=== PATIENT | female | born 1995 | race Caucasian/White ===

== ENCOUNTER → 2016-06-21 | Outpatient (CLI) | payer MEDICAID ==
[~2016-06-21] MED LIST: DOCU-143 PO; DOCU100C37 PO; HYDR-3812 PO; IBUP-1780 PO; NORE0.3518 PO; OXYC-465 PO; PREN1TAB19 PO
--- NOTE | 2016-06-21 10:09 | Diagnostic Imaging Report ---
PROCEDURE: US Gallbladder. TECHNIQUE: Multiple real-time grayscale images were obtained over the right upper quadrant in various projections. INDICATION: Right upper quadrant pain and tenderness. FINDINGS: The pancreas is completely obscured. The liver demonstrate no focal lesion. There is a hepatopetal flow in the portal vein demonstrated. The gallbladder demonstrate stones one measuring 1.6 CM largest in the neck and one measuring 1.7 CM largest in the fundus. There is gallbladder thickening up to 6 mm. The CBD is obscured. The right kidney is 10.3 CM in length with no hydronephrosis or focal lesion. There is no fluid collection in the upright abdomen and no pericholecystic fluid seen. Sonographic El sign is reportedly positive. IMPRESSION: Findings of gallstone with associated acute or chronic cholecystitis. Correlate clinically. Report was faxed and called to Michaela/KAREN c/o Deana Claudio APRN by yaneth at 10:10 am. Dictated by: Dictated on workstation # [id number]
== END ==
LOC: RAD 09:12
DX: K80.20 Calculus of gallbladder without cholecystitis without obstruction (principal)
CPT/HCPCS: 76705

== ENCOUNTER 2016-08-02 10:12 | Outpatient (CLI) | payer MEDICAID ==
[~2016-08-02] VITALS: Ht 170.2 cm; Wt 124.9 kg
[~2016-08-02 10:12] MED LIST changes: -DOCU-143 PO; -HYDR-3812 PO; -NORE0.3518 PO
--- OUTSIDE RECORDS SUMMARY | 2016-08-02 10:17 | XMS REPORT | Continuity of Care Document ---
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.0 MILD HYPEREMESIS GRAVIDARUM 10/27/2015 OSMEL JASMINE MD, Ot Z31.82 ENCOUNTER FOR RH INCOMPATIBILITY STATUS 10/28/2015 OSMEL JASMINE MD, Ot Z31.82 ENCOUNTER FOR RH INCOMPATIBILITY STATUS 01/24/2016 OSMEL JASMINE MD, Ot O41.03X0 OLIGOHYDRAMNIOS, THIRD TRIMESTER , NOT AP 01/24/2016 OSMEL JASMINE MD, Ot O48.1 PROLONGED 01/24/2016 OSMEL JASMINE MD, Ot O70.0 FIRST DEGREE PERINEAL LACERATION DURING 01/24/2016 OSMEL JASMINE MD Ot Z23 ENCOUNTER FOR IMMUNIZATION 01/24/2016 OSMEL JASMINE MD, Ot Z37.0 SINGLE LIVE 01/24/2016 OSMEL JASMINE MD, Ot Z3A.49 GREATER THAN 42 WEEKS GESTATION OF PREGN 06/21/2016 OTHER, UNLISTED Ot K80.20 CALCULUS OF GALLBLADDER W/O CHOLECYSTITI 06/21/2016 OTHER, UNLISTED Ot K80.20 CALCULUS OF GALLBLADDER W/O CHOLECYSTITI 06/22/2016 OTHER, UNLISTED Ot K80.20 CALCULUS OF GALLBLADDER W/O CHOLECYSTITI 07/10/2016 OTHER, UNLISTED Ot K80.20 CALCULUS OF GALLBLADDER W/O CHOLECYSTITI 07/17/2016 OTHER, UNLISTED Ot K80.20 CALCULUS OF GALLBLADDER W/O CHOLECYSTITI Procedures Code Description Performed By Performed On [id number] REPAIR PERINEUM SKIN, EXTERNAL APPROACH 01/22/2016 [id number] DIVISION OF FEMALE PERINEUM, EXTERNAL AP 01/22/2016 01V3YTL DELIVERY OF PRODUCTS OF CONCEPTION, EXTE 01/22/2016 Results Test Result Range Complete blood count (CBC) with automated white blood cell (WBC) differential - 01/22/16 00:15 Blood leukocytes automated count (number/volume) 15.6 10*3/ uL 4.3-11.0 Blood erythrocytes automated count (number/volume) 4.54 10*6 /uL 4.35-5.85 Venous blood hemoglobin measurement (mass/volume) 12.3 g/dL 11.5-16.0 Blood hematocrit (volume fraction) 37 % 35-52 Automated erythrocyte mean corpuscular volume 81 [foz_us] 80-99 Automated erythrocyte mean corpuscular hemoglobin (mass per erythrocyte) 27 pg 25-34 Automated erythrocyte mean corpuscular hemoglobin concentration measurement ( mass/volume) 33 g/dL 32-36 Automated erythrocyte distribution width ratio 14.2 % 10.0-14.5 Automated blood platelet count (count/volume) 265 10*3/uL 130-400 Automated blood platelet mean volume measurement 10.8 [foz_ us] 7.4-10.4 Automated blood neutrophils/100 leukocytes 82 % 42-75 Automated blood lymphocytes/100 leukocytes 12 % 12-44 Blood monocytes/100 leukocytes 5 % 0-12 Automated blood eosinophils/100 leukocytes 0 % 0-10 Automated blood basophils/100 leukocytes 0 % 0-10 Blood neutrophils automated count (number/volume) 12.8 10*3 1.8-7.8 Blood lymphocytes automated count (number/volume) 1.9 10*3 1.0-4.0 Blood monocytes automated count (number/volume) 0.8 10*3 0.0-1.0 Automated eosinophil count 0.1 10*3/uL 0.0-0.3 Automated blood basophil count (count/volume) 0.0 10*3/uL 0.0-0.1 Blood type T Indirect antibody screen panel - 01/22/16 00:15 ABO+Rh group AN NRG Transfusion band number [id number] NRG Blood group antibody screen NEGATIVE NRG Blood manual differential performed detection - 01/22/16 00:15 Blood monocytes/100 leukocytes 2 % NRG Manual blood segmented neutrophils/100 leukocytes 89 % NRG Blood band neutrophils/100 leukocytes 0 % NRG Manual blood lymphocytes/100 leukocytes 7 % NRG Manual eosinophils/100 leukocytes in nose 0 % NRG Manual blood basophils/100 leukocytes 0 % NRG Blood lymphocytes variant/100 leukocytes 2 % NRG Blood erythrocyte morphology finding identification NORMAL NRG RH IMMUNE GLOBULIN [facility] - 01/23/16 05:33 RH IMMUNE GLOBULIN [facility] PRSMD TRFSD 03/02 1102 NRG cell screen - 01/23/16 05:33 SCREEN LOT NUMBER [id number] NRG Transfusion band number [id number] NRG [id number] 1 300ug NRG Erythrocytes./1000 erythrocytes 02/03/16 NRG cell screen 03/08/18 NRG Lot number [id number] NRG Encounters ACCT No. Visit Date/Time Discharge Status Pt. Type Provider Facility Loc./Unit Complaint [id number] 01/22/2016 00:00:00 2015 13:00:00 DIS Inpatient OSMEL JASMINE MD [facility] LDRP LABOR [id number] 10/27/2015 17:29:00 2015 18:40:00 DIS Outpatient OSMEL JASMINE MD [facility] WSo RH NEGATIVE [id number] 06/23/2015 09:24:00 2015 13:04:00 DIS Outpatient OSMEL JASMINE MD [facility] IVTHERAPY NAUSEA, VOMITING [id number] 06/21/2016 09:12:00 ACT Outpatient OTHER, UNLISTED [facility] RAD ABDOMINAL PAIN
[2016-08-02] MEDS ORDERED: NORE0.3518 PO (10:22)
[2016-08-02 10:27] VITALS: BP 127/78
[2016-08-02 10:54] LABS: BASOPHILS % (AUTO) 0 % (0-10); EOSINOPHILS % (AUTO) 1 % (0-10); LYMPHOCYTES % (AUTO) 25 % (12-44); MEAN CORPUSCULAR HEMOGLOBIN 26 PG (25-34); MEAN CORPUSCULAR HGB CONC 33 G/DL (32-36); MEAN CORPUSCULAR VOLUME 81 FL (80-99); MEAN PLATELET VOLUME 9.9 FL (7.4-10.4); MONOCYTES # (AUTO) 0.4 X 10^3 (0.0-1.0); MONOCYTES % (AUTO) 5 % (0-12); NEUTROPHILS # (AUTO) 5.5 X 10^3 (1.8-7.8); NEUTROPHILS % (AUTO) 69 % (42-75); PLATELET COUNT 346 10^3/uL (130-400); RED BLOOD COUNT 4.87 10^6/uL (4.35-5.85); WHITE BLOOD COUNT 7.9 10^3/uL (4.3-11.0)
== END 2016-08-02 12:31 | disposition home or self-care (01) ==
LOC: PREOP 10:12
PROVIDERS: ATTEND Surgery
DX: Z01.812 Encounter for preprocedural laboratory examination (principal); Z11.2 Encounter for screening for other bacterial diseases; K80.20 Calculus of gallbladder without cholecystitis without obstruction
CPT/HCPCS: 36415; 85025; 87081

== ENCOUNTER 2016-08-09 08:15 | Day surgery (SDC) | payer MEDICAID ==
[~2016-08-09] VITALS: Ht 170.2 cm; Wt 124.9 kg
[~2016-08-09 08:15] MED LIST changes: +NORE0.3518 PO
--- OUTSIDE RECORDS SUMMARY | 2016-08-09 08:19 | XMS REPORT | Continuity of Care Document ---
Author Author [facility] Organization [facility] Address Unknown Phone Unavailable Allergies Active Description Code Type Severity Reaction Onset Reported/Identified Relationship to Patient Clinical Status Yes No Known Drug Allergies [id number] Drug Allergy Unknown N/ A 06/23/2015 Yes egg [id number] Drug Allergy Moderate GI UPSET 08/02/2016 Yes Latex, Natural Rubber [id number] Drug Allergy Moderate RASH 08/02/2016 Medications Problems Date Dx Coded Attending Type [...] DEGREE PERINEAL LACERATION DURING 01/24/2016 OSMEL JASMINE MD, Ot Z23 ENCOUNTER FOR IMMUNIZATION 01/24/2016 OSMEL [...] Ot K80.20 CALCULUS OF GALLBLADDER W/O CHOLECYSTITI 08/03/2016 MATEO MENJIVAR DO Ot K80.20 CALCULUS OF GALLBLADDER W/O CHOLECYSTITI 08/03/2016 MATEO MENJIVAR DO Ot Z01.812 ENCOUNTER FOR PREPROCEDURAL LABORATORY E 08/03/2016 MATEO MENJIVAR DO Ot Z11.2 ENCOUNTER FOR SCREENING FOR OTHER BACTER Procedures Code Description Performed By Performed On [id number] REPAIR PERINEUM SKIN, EXTERNAL APPROACH 01/22/2016 [id number] DIVISION OF FEMALE PERINEUM, EXTERNAL AP 01/22/2016 26O5LPC DELIVERY OF PRODUCTS OF CONCEPTION, EXTE 01/22/2016 [...] ABO+Rh group AN NRG Transfusion band number [id number] [facility] Blood group antibody screen NEGATIVE NRG Blood [...] finding identification NORMAL NRG [facility] - 01/23/16 05:33 RH IMMUNE GLOBULIN [facility] PRSMD TRFSD 03/02 1102 NRG cell screen - 01/23/16 05:33 SCREEN LOT NUMBER [id number] Transfusion band number [id number] [facility] [id number] 1 300ug NRG Erythrocytes./1000 erythrocytes 02/03/16 NRG cell screen 03/08/18 NRG Lot number [id number] NR Complete blood count (CBC) with automated white blood cell (WBC) differential - 08/02/16 10:30 Blood leukocytes automated count (number/volume) 7.9 10*3/ uL 4.3-11.0 Blood erythrocytes automated count (number/volume) 4.87 10*6 /uL 4.35-5.85 Venous blood hemoglobin measurement (mass/volume) 12.8 g/dL 11.5-16.0 Blood hematocrit (volume fraction) 39 % 35-52 Automated erythrocyte mean corpuscular volume 81 [foz_us] 80-99 Automated erythrocyte mean corpuscular hemoglobin (mass per erythrocyte) 26 pg 25-34 Automated erythrocyte mean corpuscular hemoglobin concentration measurement ( mass/volume) 33 g/dL 32-36 Automated erythrocyte distribution width ratio 14.0 % 10.0-14.5 Automated blood platelet count (count/volume) 346 10*3/uL 130-400 Automated blood platelet mean volume measurement 9.9 [foz_us ] 7.4-10.4 Automated blood neutrophils/100 leukocytes 69 % 42-75 Automated blood lymphocytes/100 leukocytes 25 % 12-44 Blood monocytes/100 leukocytes 5 % 0-12 Automated blood eosinophils/100 leukocytes 1 % 0-10 Automated blood basophils/100 leukocytes 0 % 0-10 Blood neutrophils automated count (number/volume) 5.5 10*3 1.8-7.8 Blood lymphocytes automated count (number/volume) 2.0 10*3 1.0-4.0 Blood monocytes automated count (number/volume) 0.4 10*3 0.0-1.0 Automated eosinophil count 0.0 10*3/uL 0.0-0.3 Automated blood basophil count (count/volume) 0.0 10*3/uL 0.0-0.1 Methicillin resistant Staphylococcus aureus (MRSA) screening culture - 10:30 Methicillin resistant Staphylococcus aureus (MRSA) screening culture NEG NRG Encounters ACCT No. Visit Date/Time Discharge Status Pt. Type Provider Facility Loc./Unit Complaint [id number] 08/02/2016 10:12:00 2016 12:31:00 DIS Outpatient MATEO MENJIVAR DO [facility] PREOP SYMPTOMATIC [id number] 01/22/2016 00:00:00 2015 13:00:00 DIS Inpatient OSMEL JASMINE MD [facility] LDRP LABOR [id number] 10/27/2015 17:29:00 2015 18:40:00 DIS Outpatient OSMEL JASMINE MD [facility] WSo RH NEGATIVE [id number] 06/23/2015 09:24:00 2015 13:04:00 DIS Outpatient OSMEL JASMINE MD [facility] IVTHERAPY NAUSEA, VOMITING [id number] 08/09/2016 10:15:00 PEN Preadmit MATEO MENJIVAR DO [facility] SDC SYMPTOMATIC [id number] 06/21/2016 09:12:00 ACT Outpatient OTHER, UNLISTED [facility] RAD ABDOMINAL PAIN
--- OUTSIDE RECORDS SUMMARY | 2016-08-09 08:19 | XMS REPORT | Continuity of Care Document ---
Author Author [facility] Organization [facility] Address Unknown Phone Unavailable Allergies Active Description Code Type Severity Reaction Onset Reported/Identified Relationship to Patient Clinical Status Yes No Known Drug Allergies [id number] Drug Allergy Unknown N/ A 06/23/2015 Yes egg [id number] Drug Allergy Moderate GI UPSET 08/02/2016 Yes Latex, Natural Rubber [id number] Drug Allergy Moderate RASH 08/02/2016 Medications Problems [...] Procedures Code Description Performed By Performed On [id number] REPAIR PERINEUM SKIN, EXTERNAL APPROACH 01/22/2016 [id number] DIVISION OF FEMALE PERINEUM, EXTERNAL AP 01/22/2016 [id number] DELIVERY OF PRODUCTS OF CONCEPTION, EXTE 01/22/2016 [...] ABO+Rh group AN NRG Transfusion band number [id number] [facility] Blood group antibody screen NEGATIVE [...] finding identification NORMAL NRG RH IMMUNE GLOBULIN [facility] - 01/23/16 05:33 RH IMMUNE GLOBULIN [facility] PRSMD TRFSD 03/02 1102 NRG cell screen - 01/23/16 05:33 SCREEN LOT NUMBER [id number] NR Transfusion band number [id number] [facility] [id number] 1 300ug NRG Erythrocytes./1000 erythrocytes 02/03/16 NRG cell screen 03/08/18 NRG Lot number [id number] NR Complete blood count (CBC) with automated [...] Status Pt. Type Provider Facility Loc./Unit Complaint [id number] 08/02/2016 10:12:00 2016 12:31:00 DIS Outpatient MATEO MENJIVAR DO [facility] PREOP SYMPTOMATIC [id number] 01/22/2016 00:00:00 2015 13:00:00 DIS Inpatient OSMEL JASMINE MD [facility] LDRP LABOR [id number] 10/27/2015 17:29:00 2015 18:40:00 DIS Outpatient OSMEL JASMINE MD [facility] WSo RH NEGATIVE [id number] 06/23/2015 09:24:00 2015 13:04:00 DIS Outpatient OSMEL JASMINE MD [facility] IVTHERAPY NAUSEA, VOMITING [id number] 08/09/2016 10:15:00 PEN Preadmit MATEO MENJIVAR DO [facility] SDC SYMPTOMATIC [id number] 06/21/2016 09:12:00 ACT Outpatient OTHER, UNLISTED [facility] RAD ABDOMINAL PAIN
[2016-08-09] MEDS ORDERED: ceFAZolin 2 GM/50 ML NS 50 ML IV ONE (08:37)
[2016-08-09] MEDS ORDERED: ceFAZolin 2 GM/NS 50 ML IV ONE (08:45)
[2016-08-09] MEDS ORDERED: CATHETER FLUSH 10 ML SYR IV PRN (08:45)
[2016-08-09] MEDS ORDERED: MIDAZOLAM 2 MG/2 ML (VERSED) VIAL IV ONE (09:00)
[2016-08-09] MEDS: LACTATED RINGERS 1,000 ML IV PRN ×2 (09:02→11:30)
[2016-08-09 09:21] VITALS: BP 140/88
[2016-08-09] MEDS ORDERED: FAMOTIDINE 20MG/2ML IV (PEPCID) ONE (09:32)
[2016-08-09] MEDS ORDERED: BUPIVACAINE 0.5% 30 ML (SENSORCAINE) VIAL ONE (09:36)
[2016-08-09] MEDS ORDERED: LIDOCAINE 1% INJ 20 ML (XYLOCAINE) VIAL ONE (09:36)
[2016-08-09] MEDS ORDERED: ONDANSETRON 4 MG/2 ML (SDV) Z0FRAN ONE ×3 (09:37→12:46)
[2016-08-09] MEDS ORDERED: LIDOCAINE PF 2% 10 ML (XYLOCAINE) AMP ONE (09:37)
[2016-08-09] MEDS ORDERED: DEXAMETHASONE PF 10 MG/ML (DECADRON) VIAL ONE (09:37)
[2016-08-09] MEDS ORDERED: ROCURONIUM 50 MG/5 ML (ZEMURON) VIAL IV ONE (09:37)
[2016-08-09] MEDS ORDERED: MIDAZOLAM 2 MG/2 ML (VERSED) VIAL ONE (09:37)
[2016-08-09] MEDS ORDERED: proPOfol 200 MG/20 ML (DIPRIVAN) VIAL IV ONE (09:37)
[2016-08-09] MEDS ORDERED: fentaNYL INJECTION 100 MCG/2 ML AMP ONE ×2 (09:38→12:15)
--- NOTE | 2016-08-09 10:08 | Progress Note-Pre Operative ---
Pre-Operative Progress Note H&P Reviewed The H&P was reviewed, patient examined and no changes noted. Date H&P Reviewed: Aug 09, 2016 Time H&P Reviewed: 10:08 Pre-Operative Diagnosis: symptomatic cholelithiasis MATEO MENJIVAR DO Aug 09, 2016 10:08 am
--- NOTE | 2016-08-09 11:22 | Progress Note-Post Operative ---
Post-Operative Progess Note Customer Service Advocate Dr. Mckeon Pre-Operative Diagnosis symptomatic cholelithiasis Post-Operative Diagnosis same Post-Op Procedure Note Date of Procedure: Aug 09, 2016 Name of Procedure: lap vincenzo Procedure Note/Findings see note Anesthesia Type general Estimated blood loss (mL): minimal Specimen(s) collected gallbladder MATEO MENJIVAR DO Aug 09, 2016 11:22 am
[2016-08-09] MEDS ORDERED: SEVOFLURANE (ULTANE) 15 ML INHAL SOLN ONE (11:23)
[2016-08-09] MEDS ORDERED: LACTATED RINGERS 2,000 ML IV ONE (11:23)
[2016-08-09] MEDS ORDERED: DOCU-143 PO (11:25)
[2016-08-09] MEDS ORDERED: HYDR-3812 PO (11:25)
--- NOTE | 2016-08-09 11:31 | Discharge Inst-Simple/Standard ---
Discharge Inst-Standard Discharge Medications New, Converted or Re-Newed RX: RX on Chart Patient Instructions/Follow Up Plan of Care/Instructions/FU: 2 weeks Nas Activity as Tolerated: No Discharge Diet: Regular Diet Other Inst to Patient Follow up Appt: Make appointment for 2 weeks. Instructions: No lifting greater than 10 pounds. No strenuous activity. May shower in 24 hours, no tub bath or soaking. Use incentive spirometer at home as directed. No Smoking Skin/Wound Care: May remove bandages in 24 hours. You need to leave the white strips over incision on they will fall off on their own. Symptoms to Report: Appetite Changes, Extremity Discoloration, Numbness/Tingling, Swelling Increased , Bleeding Excessive, Eyesight Changes, Pain Increased, Urine Color Change, Constipation(Persistent), Fever over 101 degree F, Pain/Pressure in chest, Urinating Difficulty, Cough Up/Vomit Blood, Heart Beat Irreg/Pounding, Pain/ Pressure in jaw, Vaginal Bleeding Increase, Cramps in feet or legs, Lightheadedness, Pain/Pressure in shoulder, Diarrhea(Persistent), Memory Changes Suddenly, Questions/Concerns, Weight gain consecutive days, Dizziness/ Fainting, Nausea/Vomiting, Shortness of Breath, Weight gain over 2 pounds. If eyes or skin turn yellow notify physician. If questions or concerns contact your physician Or seek help at emergency department. MATEO MENJIVAR DO Aug 09, 2016 11:31 am
[2016-08-09] MEDS ORDERED: morphine INJ 10 MG/ML 1ML (SYR OR VIAL) ONE (11:40)
[2016-08-09] MEDS ORDERED: KETOROLAC 30 MG/ML VIAL ONE (11:40)
[2016-08-09] MEDS ORDERED: KETOROLAC 30 MG/ML VIAL IV PRN (11:45)
[2016-08-09] MEDS ORDERED: fentaNYL INJECTION 100 MCG/2 ML AMP IV PRN (11:45)
[2016-08-09] MEDS ORDERED: ONDANSETRON 4 MG/2 ML (SDV) Z0FRAN IV PRN (11:45)
[2016-08-09] MEDS ORDERED: PROMETHAZINE INJ 25 MG/ML (PHENERGAN) AMP IV PRN (11:45)
[2016-08-09] MEDS: morphine INJ 10 MG/ML 1ML (SYR OR VIAL) IV PRN ×2 (11:54→12:03)
[2016-08-09 12:35] VITALS: BP 122/69
[2016-08-09 13:05] VITALS: BP 125/72
[2016-08-09 13:35] VITALS: BP 127/63
--- NOTE | 2016-08-09 15:26 | Diagnostic Imaging Report ---
Indication: Right upper quadrant pain. Discussion: Fluoroscopic support was provided during intraoperative cholangiogram. Please see the operative report for full detail. There is progression of contrast into the duodenum. Fluoroscopy time: 8 seconds. Contrast: 5 mL Omnipaque 300. Impression: Intraoperative cholangiogram. Dictated by: Dictated on workstation # [id number]
--- NOTE | 2016-08-10 10:41 | OPERATIVE REPORT ---
PROCEDURE PHYSICIAN: MATEO MENJIVAR DATE OF PROCEDURE: 08/09/2016 PREOPERATIVE DIAGNOSIS: Symptomatic cholelithiasis. POSTOPERATIVE DIAGNOSIS: Symptomatic cholelithiasis. PROCEDURE: Laparoscopic cholecystectomy with intraoperative cholangiogram. SURGEON: Nas SPOUT POSITIONER: Dr. Mckeon, who assisted in retraction, dissection, and closure. ANESTHESIA: General. ESTIMATED BLOOD LOSS: Minimal. COMPLICATIONS: None. INDICATIONS: The patient is a 21-year-old female who presented to with right upper quadrant abdominal pain for approximately 6 months. She had a gallbladder ultrasound demonstrating gallstones which measured 1.7-1.6 cm and a gallbladder wall 6 mm. She was explained risk and benefits of having laparoscopic cholecystectomy with intraoperative angiogram, possible open performed. She understands the risks, benefits, and wished to proceed with procedure. Consent was signed on the chart. PROCEDURE: The patient was taken operative suite. She was prepped and draped in the sterile fashion. A surgical pause was performed. Local anesthetic infiltrated were ports placed and incisions made. A 12 millimeter incision was made just above the umbilicus. Cautery was used to dissect down to the fascia, score the fascia. This was then grasped and elevated. The abdomen was then entered. An 0 Vicryl was placed in a plkdxj-wl-efapa fashion for closure at a later time. A balloon port was then inserted and balloon was inflated and pneumoperitoneum was then achieved. Under direct visualization of the laparoscope, a 5 mm trocar was placed in the subxiphoid region and two 5-mm trocars were placed in the right upper quadrant. The gallbladder was grasped and elevated. The cystic duct and cystic artery were then dissected out. Clips were placed on the distal portion of the cystic duct and on the proximal and distal portion of the cystic artery. The cystic duct was then partially transected. An arrow catheter was inserted into the duct and balloon was inflated on the arrow catheter. The cholangiogram was then performed. There were no filling defects. Contrast made its way into the duodenum without difficulty. The arrow catheter was then removed. Clips were placed on proximal portion and this was then completely transected along with the cystic artery. The hook cautery was used to dissect the gallbladder from the gallbladder fossa achieving hemostasis and removing gallbladder. The gallbladder was then placed in an Endobag and removed through the 12 mm trocar site. The abdomen was then irrigated and liver bed was reinspected, hemostasis had been achieved. The 12 mm fascial defect was then closed using 0 Vicryl suture in a mwcjfj-qk-poqwq that was already placed. The abdomen was then desufflated. The trocars were removed. The subcutaneous tissues were then reapproximated using 4-0 Vicryl in subcuticular fashion. Mastisol and Steri-Strips were then placed over the incision and sterile bandages were placed. The patient tolerated the procedure well without complications. She was taken to the recovery room in stable condition. Job ID: [id number] Dictated Date: 08/09/2016 11:35:49 Powerhouse Mechanic Helper Date: 08/10/2016 10:20:39 / tavia YEPEZ
== END 2016-08-09 14:22 | disposition home or self-care (01) ==
LOC: SDC 08:15
PROVIDERS: ATTEND Surgery
DX: K80.10 Calculus of gallbladder with chronic cholecystitis without obstruction (principal)
CPT/HCPCS: 84703; 88304; 94664

== ENCOUNTER → 2019-02-02 | Outpatient (CLI) | payer MEDICAID, OTHER ==
[~2019-02-02] MED LIST changes: +ACHD5005 PO; +DOCU-143 PO
--- NOTE | 2019-02-02 18:06 | Diagnostic Imaging Report ---
PROCEDURE: US OB SINGLE FETUS <14 WKS. TECHNIQUE: Multiple real-time grayscale images were obtained over the gravid uterus in various projections. INDICATION: dating. FINDINGS: There is an intrauterine gestational sac containing a pole. [place]-rump length measurement is 16 mm, consistent with 8 weeks 0 days gestation. heart rate was recorded at 163 beats per minute. No perigestational sac hemorrhage is detected. Gestational sac shape is within normal limits. Ovaries are unremarkable. No adnexal mass or free fluid is seen. IMPRESSION: Single live IUP of 8 weeks 0 days gestational age. Estimated date of confinement sonographically is 09/14/2019. Dictated by: Dictated on workstation # [id number]
== END ==
LOC: RAD 13:22
PROVIDERS: ATTEND Family Medicine
DX: Z34.91 Encounter for supervision of normal pregnancy, unspecified, first trimester (principal); Z3A.08 8 weeks gestation of pregnancy
CPT/HCPCS: 76801

== ENCOUNTER → 2019-04-16 | Outpatient (CLI) | payer OTHER, MEDICAID ==
--- NOTE | 2019-04-16 15:11 | Diagnostic Imaging Report ---
INDICATION: survey. TECHNIQUE: Multiple real-time grayscale images were obtained over the gravid uterus. COMPARISON: 02/02/2019. FINDINGS: A single live intrauterine fetus is seen measuring 18 weeks 6 days in size by composite measurements, with sonographic EDC of 09/11/2019. Fetus is in breech presentation at this time. The amniotic fluid is qualitatively normal. Placenta is grade 1 with no evidence of previa. heart rate is 146 beats per minute. Cervical length is 3.6 cm. The maternal adnexa could not be visualized. survey showed normal-appearing kidneys and bladder. Normal-appearing stomach and intracranial ventricles are seen. Four-chamber heart view appears unremarkable. There is a three-vessel cord with normal-appearing cord insertion. The spine appears unremarkable. There is a possible nuchal cord, for which follow-up is suggested. Biometrical measurements are as follows: Biparietal 4.23 cm, age 18 weeks 6 days. Head circumference 15.81 cm, age 18 weeks 5 days. Abdominal circumference 13.06 cm, age 18 weeks 5 days. Femur length 2.88 cm, age 18 weeks 6 days. Sonographic estimate age: 18 weeks 6 days. Sonographic estimated date of delivery: 09/11/2019. Estimated Weight: 254 gm (+/- 37 gm). LMP percentile: 63%. heart rate: 146 beats per minute. number: 1 of 1. IMPRESSION: Single live intrauterine fetus measuring 18 weeks 6 days in size as described above with normal interval growth compared to the previous ultrasound. survey shows no detectable abnormalities except for possible nuchal cord, for which follow-up is suggested. The fetus is in breech presentation at this time. Dictated by: Dictated on workstation # [id number]
== END ==
LOC: RAD 13:15
PROVIDERS: ATTEND Family Medicine
DX: Z34.92 Encounter for supervision of normal pregnancy, unspecified, second trimester (principal); Z3A.18 18 weeks gestation of pregnancy
CPT/HCPCS: 76805

== ENCOUNTER → 2019-05-05 | Outpatient (CLI) | payer MEDICAID, OTHER ==
--- NOTE | 2019-05-05 15:06 | Diagnostic Imaging Report ---
INDICATION: Follow-up nuchal cord. TECHNIQUE: Multiple real-time grayscale images were obtained over the gravid uterus. COMPARISON: 04/16/2019. FINDINGS: There is a single live fetus in a breech presentation. heart rate was recorded at 142 BPM. Placenta is anterior. Amniotic fluid volume is 19.2 cm. Previously noted nuchal cord is not demonstrated on today's exam. Maternal adnexa is unremarkable. IMPRESSION: Unremarkable Limited obstetrical ultrasound. No nuchal cord is identified. Dictated by: Dictated on workstation # [id number]
== END ==
LOC: RAD 11:58
PROVIDERS: ATTEND Family Medicine
DX: O69.81X0 Labor and delivery complicated by cord around neck, without compression, not applicable or unspecified (principal); Z3A.00 Weeks of gestation of pregnancy not specified
CPT/HCPCS: 76816

== ENCOUNTER 2019-07-29 09:39 | Outpatient (CLI) | payer MEDICAID ==
--- NOTE | 2019-07-29 09:45 | NUR ---
Arrived to unit for RHogam injection. To room 314. oriented to room, call light and plan of care. ice water given.
[2019-07-29 09:55] VITALS: BP 114/73
[2019-07-29 10:32] VITALS: BP 115/73
--- NOTE | 2019-07-29 10:40 | NUR ---
pt ambulates self off unit to private vehicle with belongings in hand.
== END 2019-07-29 10:40 | disposition home or self-care (01) ==
LOC: WSo 09:39
PROVIDERS: ATTEND Family Medicine
DX: Z31.82 Encounter for Rh incompatibility status (principal)
CPT/HCPCS: 96372

== ENCOUNTER 2019-09-10 05:20 | Inpatient (IN) | payer OTHER, MEDICAID ==
[2019-09-10] VITALS (50 sets, daily range): BP systolic 107–175; BP diastolic 62–96
[~2019-09-10] VITALS: Ht 170.2 cm; Wt 122.6 kg
--- NOTE | 2019-09-10 06:00 | NUR ---
BRENDA JOSEPH presented to unit via ambulation from home, accompanied by s.o. for induction of labor. BRENDA JOSEPH weighed, gowned, voided, and to bed. EFHM and TOCO applied, VS taken. BRENDA JOSEPH oriented to bed controls, call light, TV, heat, and A/C controls.
[2019-09-10] MEDS ORDERED: MINERAL OIL CONCENTRATE 99.9% 15 ML UDC TOP PRN (06:15)
[2019-09-10] MEDS ORDERED: PREN-142 PO (06:48)
[2019-09-10 06:52] LABS: BILIRUBIN,URINE NEGATIVE (NEGATIVE); CLARITY,URINE CLEAR; COLOR,URINE YELLOW; GLUCOSE, URINE (UA) NEGATIVE (NEGATIVE); KETONES,URINE NEGATIVE (NEGATIVE); LEUKOCYTE ESTERASE ,URINE NEGATIVE (NEGATIVE); NITRITE,URINE NEGATIVE (NEGATIVE); PROTEIN,URINE NEGATIVE (NEGATIVE)
[2019-09-10 06:52] LABS: BASOPHILS % (AUTO) 0 % (0-10); EOSINOPHILS # (AUTO) 0.1 10^3/uL (0.0-0.3); EOSINOPHILS % (AUTO) 1 % (0-10); HEMATOCRIT 36 % (35-52); HEMOGLOBIN 12.3 G/DL (11.5-16.0); LYMPHOCYTES # (AUTO) 2.3 X 10^3 (1.0-4.0); LYMPHOCYTES % (AUTO) 17 % (12-44); MEAN CORPUSCULAR HEMOGLOBIN 27 PG (25-34); MEAN CORPUSCULAR HGB CONC 34 G/DL (32-36); MEAN CORPUSCULAR VOLUME 81 FL (80-99); MEAN PLATELET VOLUME 10.5 FL (7.4-10.4); MONOCYTES # (AUTO) 0.6 X 10^3 (0.0-1.0); MONOCYTES % (AUTO) 5 % (0-12); NEUTROPHILS % (AUTO) 77 % (42-75); PLATELET COUNT 262 10^3/uL (130-400); RED CELL DISTRIBUTION WIDTH 14.4 % (10.0-14.5); WHITE BLOOD COUNT 12.9 10^3/uL (4.3-11.0)
[2019-09-10 07:02] LABS: BACTERIA,URINE TRACE /HPF; SQUAMOUS EPITHELIAL CELL,UR 0-2 /HPF
[2019-09-10] MEDS ORDERED: OXYTOCIN PRE-MIX DRIP 500 ML IV ONE (07:05)
[2019-09-10] MEDS: D5 LR IV SOLUTION 1,000 ML IV SCH ×2 (07:22→15:10)
[2019-09-10] MEDS ORDERED: OXYTOCIN PRE-MIX DRIP 500 ML IV SCH ×3 (07:23→17:56)
--- NOTE | 2019-09-10 07:27 | History & Physical-OB ---
OB - Chief Complaint & HPI Date/Time Date of Admission: Date of Admission: Sep 10, 2019 at 06:06 Date seen by a Provider: Sep 10, 2019 Time Seen by a Provider: 07:10 Chief Complaint/History OB-Reason for Admission/Chief: Induction of Labor Hx : 2 Hx Para: 1 Expected Date of Delivery: Sep 14, 2019 Gestational Age in Weeks: 39 Gestational Age in Days: 3 Admission Nurse Assessment Rev: Yes History of Labs GBS negative Allergies and Home Medications Allergies Coded Allergies: Latex, Natural Rubber (Verified Allergy, Intermediate, RASH, 08/02/16) egg (Verified Allergy, Intermediate, GI UPSET, 08/02/16) Patient Home Medication List Home Medication List Reviewed: Yes OB - History Hx of Present Care: Yes Ultrasounds: Normal mid trimester US Obstetrical Complications: None Medical Complications: None Delivery History Hx Blood Disorders: No Adverse Rxn to Tranfusion: No (N/A) Patient Past Medical History no chronic medical problems Social History/Family History HIV/AIDS: No Sexually Transmitted Disease: No Immunizations Tetanus Booster (TDap): Unknown OB - Admission Exam Physical Exam Vitals: Vital Signs 09/10/19 07:00 Temp 36.8 Pulse 98 Resp 18 Pulse Ox 97 O2 Delivery Room Air HEENT: Moist Membranes Heart: Rhythm Normal Lungs: Clear Abdomen: Gravid Extremities: Normal Reflexes: Normal Cervical Dilatation: 1cm Effacement: 50% Station: -3 Membranes: Intact Heart Rate: 140's Accelerations: Accelerations Present Decelerations: No Decelerations Short Term Variability: Present Harness Brusher Variability: Average (6-25) Contractions on Admission: < 5 Minutes Apart Intensity: Mild Wilkinson Scoring Tool (Modified) Dilation (cm): 1-2cm (1) Effacement (%): 31-51% (1) Descent/Station: -3 (0) Cervix Consistency: Medium(1) Cervix Position: Middle/Mid-Position (1) Add 1 point for: Each previous vaginal delivery (1) Wilkinson Score: 5 Labs Laboratory Tests Test 09/10/19 06:25 09/10/19 06:40 Range/Units Urine Color YELLOW Urine Clarity CLEAR Urine pH 6.0 5-9 Urine Specific [place] 1.010 L 1.016-1.022 Urine Protein NEGATIVE NEGATIVE Urine Glucose (UA) NEGATIVE NEGATIVE Urine Ketones NEGATIVE NEGATIVE Urine Nitrite NEGATIVE NEGATIVE Urine Bilirubin NEGATIVE NEGATIVE Urine Urobilinogen 0.2 < = 1.0 MG/DL Urine Leukocyte Esterase NEGATIVE NEGATIVE Urine RBC (Auto) NEGATIVE NEGATIVE Urine RBC NONE /HPF Urine WBC NONE /HPF Urine Squamous Epithelial Cells 0-2 /HPF Urine Crystals NONE /LPF Urine Bacteria TRACE /HPF Urine Casts NONE /LPF Urine Mucus NEGATIVE /LPF Urine Culture Indicated NO White Blood Count 12.9 H 4.3-11.0 10^3/uL Red Blood Count 4.50 4.35-5.85 10^6/uL Hemoglobin 12.3 11.5-16.0 G/DL Hematocrit 36 35-52 % Mean Corpuscular Volume 81 80-99 FL Mean Corpuscular Hemoglobin 27 25-34 PG Mean Corpuscular Hemoglobin Concent 34 32-36 G/DL Red Cell Distribution Width 14.4 10.0-14.5 % Platelet Count 262 130-400 10^3/uL Mean Platelet Volume 10.5 H 7.4-10.4 FL Neutrophils (%) (Auto) 77 H 42-75 % Lymphocytes (%) (Auto) 17 12-44 % Monocytes (%) (Auto) 5 0-12 % Eosinophils (%) (Auto) 1 0-10 % Basophils (%) (Auto) 0 0-10 % Neutrophils # (Auto) 10.0 H 1.8-7.8 X 10^3 Lymphocytes # (Auto) 2.3 1.0-4.0 X 10^3 Monocytes # (Auto) 0.6 0.0-1.0 X 10^3 Eosinophils # (Auto) 0.1 0.0-0.3 10^3/uL Basophils # (Auto) 0.0 0.0-0.1 10^3/uL OB - Assessment/Plan/Diagnosis Assessment Assessment: induction of labor Admission Dx 1. IUP at 39w3d Admission Status: Inpatient Order (span 2 midnights) Reason for Inpatient Admission: L&D Plan Plan: Induction Induction Method: AROM Other Plan -pitocin as necessary -stadol for IV pain relief. At this time she doesn't desire epidural KAY PERALTA MD Sep 10, 2019 07:27
[2019-09-10] MEDS: BUTORPHANOL INJ 2 MG/ML (STADOL) VIAL IV PRN ×2 (12:05→15:14)
--- NOTE | 2019-09-10 12:07 | NUR ---
was called with SVE update. no new orders received @ time.
[2019-09-10] MEDS ORDERED: CATHETER FLUSH 10 ML SYR IV SCH ×2 (14:00→22:00)
[2019-09-10] MEDS ORDERED: diphenhydrAMINE 50 MG/ML INJ (BENADRYL) IM PRN (14:30)
--- NOTE | 2019-09-10 14:54 | NUR ---
called to check on pt's status. no new orders received.
[2019-09-10] MEDS ORDERED: ONDANSETRON 4 MG/2 ML (SDV) Z0FRAN ONE (15:02)
[2019-09-10] MEDS ORDERED: ONDANSETRON 4 MG/2 ML (SDV) Z0FRAN IVP PRN (15:30)
[2019-09-10] MEDS ORDERED: MEPIVACAINE (CARBOCAINE) 2% 50 ML VIAL ONE (17:13)
--- NOTE | 2019-09-10 17:59 | OB Labor & Delivery Record ---
L&D History Date of Service Date of Service: Sep 10, 2019 History Expected Date of Delivery: Sep 14, 2019 Gestational Age in Weeks: 39 Hx : 2 Hx Para: 2 Complications Events: Routine care Operative Indications (Cesarea: N/A-Vaginal Delivery Intrapartal Events: None L&D Stage1 Stage One Onset of Labor - Date: Sep 10, 2019 Onset of Labor - Time: 07:13 Monitors and Tracing Monitor Mode: Internal Heart Rate: 110 Monitor Accelerations: Uniform Monitor Decelerations: None Station: 0 Machinist Apprentice Variability: Average (6-10) Short Term Variability: Present Presentation: Vertex Vital Signs VS - Last 72 Hours, by Label 09/10/19 09/10/19 09/10/19 09/10/19 07:00 07:15 07:30 07:45 Temp 36.8 36.6 Pulse 98 90 79 77 Resp 18 18 18 18 B/P (MAP) 127/74 (91) 120/71 (87) 130/70 (90) Pulse Ox 97 O2 Delivery Room Air Room Air Room Air Room Air 09/10/19 09/10/19 09/10/19 09/10/19 08:00 08:15 08:30 08:45 Pulse 79 78 73 76 Resp 18 18 18 18 B/P (MAP) 121/68 (85) 127/70 (89) 127/70 (89) 129/80 (96) O2 Delivery Room Air Room Air Room Air Room Air 09/10/19 09/10/19 09/10/19 09/10/19 09:00 09:15 09:30 09:45 Pulse 79 79 83 75 Resp 18 18 18 18 B/P (MAP) 132/79 (96) 132/79 (96) 130/74 (92) 127/76 (93) O2 Delivery Room Air Room Air Room Air Room Air 09/10/19 09/10/19 09/10/19 09/10/19 10:00 10:15 10:30 10:45 Pulse 75 80 76 77 Resp 18 18 18 18 B/P (MAP) 133/84 (100) 139/82 (101) 138/88 (105) 124/62 (82) O2 Delivery Room Air Room Air Room Air Room Air 09/10/19 09/10/19 09/10/19 09/10/19 11:00 11:15 11:30 11:45 Pulse 75 80 73 73 Resp 18 18 18 18 B/P (MAP) 125/68 (87) 113/62 (79) 125/68 (87) 125/68 (87) O2 Delivery Room Air Room Air Room Air Room Air 09/10/19 09/10/19 09/10/19 09/10/19 12:00 12:15 12:30 12:45 Pulse 77 88 76 Resp 18 18 18 B/P (MAP) 144/74 (97) 143/65 (91) 136/82 (100) O2 Delivery Room Air Room Air Room Air Room Air 09/10/19 09/10/19 09/10/19 09/10/19 13:00 13:15 13:30 13:45 Temp 36.0 Pulse 75 70 75 77 Resp 18 18 18 18 B/P (MAP) 138/76 (96) 137/91 (106) 145/91 (109) 142/90 (107) O2 Delivery Room Air Room Air Room Air Room Air 09/10/19 09/10/19 09/10/19 09/10/19 14:00 14:15 14:30 14:45 Pulse 78 68 69 79 Resp 18 18 18 18 B/P (MAP) 147/90 (109) 137/85 (102) 141/90 (107) 142/85 (104) O2 Delivery Room Air Room Air Room Air Room Air 09/10/19 09/10/19 09/10/19 09/10/19 14:54 15:00 15:15 15:30 Temp 36.2 Pulse 73 71 63 Resp 18 18 18 B/P (MAP) 134/84 (101) 142/92 (109) 142/85 (104) O2 Delivery Room Air Room Air Room Air 09/10/19 09/10/19 09/10/19 09/10/19 15:45 16:00 16:15 16:30 Pulse 64 71 72 80 Resp 18 18 18 18 B/P (MAP) 144/87 (106) 175/95 (121) 162/86 (111) 162/92 (115) O2 Delivery Room Air Room Air Room Air Room Air 09/10/19 16:45 Temp 36.4 Pulse 74 Resp 18 B/P (MAP) 143/96 (112) O2 Delivery Room Air Signs of Distress by FHT Signs of Distress no Rupture of Membranes Spontaneous Ruture of Membrane: No Amniotic Membrane Rupture Time: 0713 Amniotic Membrane Fluid Desc.: Clear Vaginal Bleeding Description: None L&D Stage2 Stage Two Stage II Date: Sep 10, 2019 Stage II Time: 17:22 Monitors and Tracing Monitor Mode: Internal Heart Rate: 110 Monitor Accelerations: Uniform Monitor Decelerations: None Machinist Apprentice Variability: Average (6-10) Short Term Variability: Present Position: Left Occiput Anterior Presentation: Vertex Signs of Distress by FHT Signs of Distress no Cord Descript/Complications Cord Vessel Description: 3 Vessels Delivery Type Infant Delivery Method: Spontaneous Vaginal Anterior Shoulder: Left Episiotomy/Perineal Laceration Laceraction(s)/Extensions: Yes Episiotomy Description: Midline Sutures Used: Vicryl Condition of Infant Delivery 1 minute Comment: 8 5 minute Comment: 9 Condition of Infant Condition of : Living Exam: No Observed Abnormalities Resuscitation Resuscitation: N/A - Spontaneous Resp L&D Stage3 Stage Three Stage III Date: Sep 10, 2019 Stage III Time: 17:28 Pictocin Pitocin Administration mu/min: 14 Pitocin ml/hr: 14 Pitocin Administration Comment: pitocin increased Placenta Delivery Placenta Delivery: Spontaneous Delivery Summary Summary Estimated blood loss (mL): 200 Condition of Delivery Examined: Cervix Examined Post Hemorrhage: Yes Intervention Required none KAY PERALTA MD Sep 10, 2019 17:59
[2019-09-10] MEDS ORDERED: WITCH HAZEL(TUCKS) 40 EA JAR TOP PRN (18:00)
[2019-09-10] MEDS ORDERED: BENZOCAINE/MENTHOL (DERMOPLAST) 60 ML CAN TP PRN (18:00)
[2019-09-10] MEDS ORDERED: TETANUS,DIPTH,PERTUSS P/F (BOOSTRIX) 0.5 ML VIAL IM ONE (18:00)
[2019-09-10] MEDS ORDERED: MEASLES,MUMPS,RUBELLA 1 EA INJ SQ ONE (18:00)
[2019-09-10] MEDS: IBUPROFEN 600 MG (MOTRIN) TAB PO SCH (18:32)
[2019-09-10] MEDS: ACETAMINOPHEN 500 MG TAB (TYLENOL) PO SCH (18:32)
--- NOTE | 2019-09-10 19:13 | NUR ---
report given to KAREN Norman.
[2019-09-10] MEDS: DOCUSATE SODIUM 100 MG (COLACE) CAP PO SCH (23:28)
[2019-09-11 02:50] VITALS: BP 109/51
[2019-09-11] MEDS: IBUPROFEN 600 MG (MOTRIN) TAB PO SCH ×3 (02:52→15:42)
[2019-09-11] MEDS: ACETAMINOPHEN 500 MG TAB (TYLENOL) PO SCH ×3 (02:52→15:42)
[2019-09-11 07:02] LABS: BASOPHILS % (AUTO) 0 % (0-10); EOSINOPHILS % (AUTO) 0 % (0-10); HEMATOCRIT 34 % (35-52); HEMOGLOBIN 11.1 G/DL (11.5-16.0); LYMPHOCYTES # (AUTO) 2.6 X 10^3 (1.0-4.0); LYMPHOCYTES % (AUTO) 13 % (12-44); MEAN CORPUSCULAR HEMOGLOBIN 27 PG (25-34); MEAN CORPUSCULAR HGB CONC 33 G/DL (32-36); MEAN CORPUSCULAR VOLUME 82 FL (80-99); MEAN PLATELET VOLUME 10.7 FL (7.4-10.4); MONOCYTES # (AUTO) 0.9 X 10^3 (0.0-1.0); MONOCYTES % (AUTO) 4 % (0-12); NEUTROPHILS # (AUTO) 17.2 X 10^3 (1.8-7.8); NEUTROPHILS % (AUTO) 83 % (42-75); PLATELET COUNT 251 10^3/uL (130-400); RED CELL DISTRIBUTION WIDTH 14.8 % (10.0-14.5); WHITE BLOOD COUNT 20.7 10^3/uL (4.3-11.0)
--- NOTE | 2019-09-11 07:45 | Discharge Summary ---
Diagnosis/Chief Complaint Date of Admission Sep 10, 2019 at 06:06 Date of Discharge September 11, 2019 Discharge Date: Sep 11, 2019 Discharge Time: 18:00 Admission Diagnosis Admission Diagnosis 1. Intrauterine at term 39 weeks Discharge Diagnosis 1. Intrauterine at term 39 weeks Reason Hospital Visit 24-year-old 2 now term 2 presented to women's services in the morning of September 10, 2019 for induction of labor at 39 weeks and 3 days gestation. Her care was essentially unremarkable. Her GBS status was noted be negative. She had occasional contraction on presentation. Discharge Summary-OBS Procedures 1. Spontaneous vaginal delivery 2. Repair of midline episiotomy Discharge Physical Examination Allergies: Coded Allergies: Latex, Natural Rubber (Verified Allergy, Intermediate, RASH, 08/02/16) egg (Verified Allergy, Intermediate, GI UPSET, 08/02/16) Vitals & I&Os Vital Signs Date Time Temp Pulse Resp B/P (MAP) Pulse Ox O2 Delivery O2 Flow Rate FiO2 09/11/19 02:50 36.7 88 18 109/51 (70) 98 09/10/19 19:00 Room Air General Appearance: No Acute Distress Respiratory: Clear to Auscultation Cardiovascular: Regular Rate Abdominal: Soft (With uterus firm) Skin: No Rashes Hospital Course Was the Problem List Reviewed?: Yes Following admission on September 10, 2019 she underwent amniotomy with placement of scalp electrode. She required low-dose Pitocin augmentation to achieve adequate contraction pattern. She did not desire to have epidural. Ultimately she did receive a dose of Stadol for IV pain relief. She went on to deliver at 1622 a term viable male with Apgars of 8 at 1 minute and 9 at 5 minutes. Following delivery she underwent routine care orders. There was no complications during the remainder of hospital stay. She was noted to be ambulatory and have no shortness of breath or leg pain. Her hemoglobin on admission was noted to be 12.3. Hemoglobin day after delivery was 11.1. She desired dismissal 24 hours after delivery. She will follow-up with Dr. Peralta in 6 weeks. All questions answered. Pending Labs Laboratory Tests 09/11/19 06:18: White Blood Count 20.7, Red Blood Count 4.15, Hemoglobin 11.1, Hematocrit 34, Mean Corpuscular Volume 82, Mean Corpuscular Hemoglobin 27, Mean Corpuscular Hemoglobin Concent 33, Red Cell Distribution Width 14.8, Platelet Count 251, Mean Platelet Volume 10.7, Neutrophils (%) (Auto) 83, Lymphocytes (%) (Auto) 13, Monocytes (%) (Auto) 4, Eosinophils (%) (Auto) 0, Basophils (%) (Auto) 0, Neutrophils # (Auto) 17.2, Lymphocytes # (Auto) 2.6, Monocytes # (Auto) 0.9, E osinophils # (Auto) 0.0, Basophils # (Auto) 0.0 Discharge Instructions to patient/family Please see electronic discharge instructions given to patient. Discharge Medications Reviewed and agree with Discharge Medication list on patient's Discharge Instruction sheet Clinical Quality Measures DVT/VTE Risk/Contraindication: Risk Factor Score Per Nursin RFS Level Per Nursing on Admit: 2=Moderate KAY PERALTA MD Sep 11, 2019 07:45
[2019-09-11] MEDS ORDERED: IBUP-844 PO (07:47)
--- NOTE | 2019-09-11 07:48 | Discharge Inst-Women's Service ---
Discharge Inst-Women's Serv Depart Medication/Instructions New, Converted or Re-Newed RX: Transmitted to Pharmacy ([facility]) Problems Reviewed?: Yes Consults/Follow Up Additional Follow Up: Yes (Dr Peralta in 6 weeks.) Activity Activity: Activity as Tolerated Driving Instructions: No Driving for 1 Week Nothing Inside Vagina: No [place] (for 6 weeks.) Diet Discharge Diet: Regular Diet Return to The Hospital For: as below Symptoms to Report to : Bleeding Excessive, Fever Over 101 Degrees F, Vaginal Discharge Foul For Any Problems or Questions: Contact Your Physician KAY PERALTA MD Sep 11, 2019 07:48
[2019-09-11 09:40] VITALS: BP 124/71
[2019-09-11] MEDS: DOCUSATE SODIUM 100 MG (COLACE) CAP PO SCH (09:42)
[2019-09-11 15:45] VITALS: BP 118/68
--- NOTE | 2019-09-11 18:25 | NUR ---
Discharge instructions explained to pt with copy provided to pt. Pt notified of script sent to [facility] pharmacy. Pt notified of need to schedule follow up. Pt denies any questions or concerns at this time.
--- NOTE | 2019-09-11 20:30 | NUR ---
TDAP given to pt per request. Pt and infant are ready to leave. Pt. walked down with SO. secured in carseat. No s/s of distress.
== END 2019-09-11 20:30 | disposition home or self-care (01) | DRG 807 ==
LOC: LDRP 06:06
PROVIDERS: ADMIT Family Medicine; ATTEND Family Medicine
PROC: 10E0XZZ Delivery of Products of Conception, External Approach (ICD-10-PCS; principal; 2019-09-10)
PROC: 10907ZC Drainage of Amniotic Fluid, Therapeutic from Products of Conception, Via Natural or Artificial Opening (ICD-10-PCS; 2019-09-10)
PROC: 0W8NXZZ Division of Female Perineum, External Approach (ICD-10-PCS; 2019-09-10)
DX: O80 Encounter for full-term uncomplicated delivery (principal); Z37.0 Single live birth; Z3A.39 39 weeks gestation of pregnancy; Z23 Encounter for immunization
CPT/HCPCS: 36415; 81000; 83033; 85025; 85027; 86850; 86900; 86901; 90715